=== PATIENT | female | born 1950 | race Two or more races ===

== ENCOUNTER 2019-07-28 16:32 | Inpatient (IN) | payer OTHER ==
[~2019-07-28] VITALS: Ht 162.6 cm; Wt 117.9 kg
[~2019-07-28 16:32] MED LIST: AVAPRO300 MG PO; CATAFLAN
[2019-08-03] MEDS ORDERED: ANTIFUNGAL113 GM (08:21)
[2019-08-03] MEDS ORDERED: NAPROXEN SODIU550 MG (08:22)
[2019-08-03] MEDS ORDERED: DICLOFENAC SODI50 MG PO (08:22)
[2019-08-03] MEDS ORDERED: ORASEP SPRAY30 ML (08:22)
[2019-08-05] MEDS ORDERED: XARELTO10 MG PO (08:02)
[2019-08-05] MEDS ORDERED: BACTRIM DS TAB1 EACH PO (08:02)
[2019-08-05] MEDS ORDERED: OXYC1TAB9 PO (08:02)
[2019-08-05] MEDS ORDERED: INTEGRA PLUS C1 EACH PO (08:02)
== END 2019-08-05 14:24 | DRG 470 ==
LOC: O/R 08-03 05:05 → SURH 08-03 11:59 → CIR.AMB 08-03 12:00 → SURH 08-03 13:15 → EDSTATUS 08-03 13:41 → SURH 08-03 13:42
PROVIDERS: ADMIT Orthopaedic Surgery Sports Medicine
PROC: 0SRC0J9 Replacement of Right Knee Joint with Synthetic Substitute, Cemented, Open Approach (ICD-10-PCS; principal; 2019-08-03 13:15)
DX: M17.11 Unilateral primary osteoarthritis, right knee (principal); I10 Essential (primary) hypertension

== ENCOUNTER 2021-06-02 14:27 | Inpatient (IN) | payer OTHER ==
[~2021-06-02] VITALS: Ht 162.6 cm; Wt 117.9 kg
[~2021-06-02 14:27] MED LIST changes: +ANTIFUNGAL113 GM; +BACTRIM DS TAB1 EACH PO; +DICLOFENAC SODI50 MG PO; +INTEGRA PLUS C1 EACH PO; +NAPROXEN SODIU550 MG; +ORASEP SPRAY30 ML; +OXYC1TAB9 PO; +XARELTO10 MG PO
[2021-06-23] MEDS ORDERED: ZOCOR40 MG PO (09:41)
[2021-06-26] MEDS ORDERED: DICLOFENAC POTA50 MG (07:48)
[2021-06-26] MEDS ORDERED: HYDROCHLOROTH12.5 MG (07:48)
[2021-06-26] MEDS ORDERED: ATORVASTATIN CA40 MG (07:49)
[2021-06-28] MEDS ORDERED: OXYC1TAB9 PO (06:40)
[2021-06-28] MEDS ORDERED: XARELTO10 MG PO (06:40)
[2021-06-28] MEDS ORDERED: INTEGRA PLUS C1 EACH PO (06:40)
[2021-06-28] MEDS ORDERED: BACTRIM DS TAB1 EACH PO (06:40)
== END 2021-06-30 18:57 | DRG 470 ==
LOC: SURH 06-26 06:32 → O/R 06-26 06:32 → SURH 06-26 07:00
PROVIDERS: ADMIT Orthopaedic Surgery Sports Medicine; ATTEND Orthopaedic Surgery Sports Medicine
PROC: 0SR90JZ Replacement of Right Hip Joint with Synthetic Substitute, Open Approach (ICD-10-PCS; principal; 2021-06-26 07:00)
PROC: 30233N1 Transfusion of Nonautologous Red Blood Cells into Peripheral Vein, Percutaneous Approach (ICD-10-PCS; 2021-06-28)
DX: M16.11 Unilateral primary osteoarthritis, right hip (principal); D62 Acute posthemorrhagic anemia; I10 Essential (primary) hypertension; E78.49 Other hyperlipidemia; Z20.822 Contact with and (suspected) exposure to COVID-19

== ENCOUNTER 2025-01-11 05:17 | Day surgery (SDC) | payer OTHER ==
[2025-01-06 11:56] LABS: URINE APPEARANCE Clear; URINE BILIRRUBIN Negative (NEGATIVE); URINE BLOOD Negative; URINE COLOR Yellow; URINE GLUCOSE Negative (NEGATIVE); URINE KETONE Negative (NEGATIVE); URINE LEUKOCYTE Negative; URINE NITRATE Negative; URINE PROTEIN Negative (NEGATIVE); URINE UROBILINOGEN 0.2 E.U./dl
[2025-01-06 12:00] LABS: URINE BACTERIA 964.8 uL (0.0-1933); URINE EPITHELIAL CELLS 33.3 uL (0.0-38.8); URINE RBC 3.0 uL (0.0-20.8); URINE WBC 17.2 uL (0.0-23.2)
[2025-01-06 12:03] LABS: BASO % 0.3 % (0.1-1.2); EOS # 0.15 (0.04-0.54); EOS % 1.2 % (0.7-7.0); LYMPH # 4.45 (1.18-3.74); LYMPH % 34.7 % (19.3-53.1); MEAN PLATELET VOLUME 10.60 fl (9.4-12.4); MONO # 0.88 (0.24-0.82); MONO % 6.9 % (4.7-12.5); NEUT # 7.26 (1.56-6.13); NEUT % 56.6 % (34.0-71.1); RED CELL DISTRIBUTION WIDTH 15.7 % (11.6-14.4)
[2025-01-06 12:08] LABS: URINE CAST 1.17 uL (0.0-1.40)
[2025-01-06 12:18] LABS: INR 1.04
[2025-01-06 12:23] LABS: ALT/SGPT 19.0 U/L (12-78); AST/SGOT 13.0 U/L (15-37); BILIRUBIN TOTAL 0.75 mg/dL (0.3-1.2); BUN CREA RATIO 17.0 (7.0-25.0); CREATININE SERUM 1.39 mg/dL (0.55-1.02); GFR 37.06; GLOBULINA 4.2 G/DL (2.4-3.5); GLUCOSE FASTING 111.0 mg/dL (65-100); OSMOLALITY SERUM 289.0 MOSM/KG (275-295)
[2025-01-06 12:57] VITALS: BP 114/73
[~2025-01-11] VITALS: Ht 162.6 cm; Wt 117.9 kg
[~2025-01-11 05:17] MED LIST changes: +ATORVASTATIN CA40 MG; +DICLOFENAC POTA50 MG; +HYDROCHLOROTH12.5 MG; +NIFEDIPINE20 MG; +ZOCOR40 MG PO
[2025-01-11] MEDS ORDERED: ONDANSETRON HCL 2 MG/ML VIAL IV ONE (08:30)
[2025-01-11] MEDS ORDERED: KETOROLAC TROMETHAMINE 30 MG VIAL IV ONE (08:30)
[2025-01-11] MEDS ORDERED: POVIDONE-IODINE 118 ML BOTT TOP ONE (08:45)
== END 2025-01-11 12:40 | disposition home or self-care (01) ==
LOC: CIR.AMB 05:17
PROVIDERS: ATTEND Obstetrics & Gynecology
DX: N95.0 Postmenopausal bleeding (principal); N84.1 Polyp of cervix uteri; N88.8 Other specified noninflammatory disorders of cervix uteri

== ENCOUNTER 2025-01-27 09:00 | Inpatient (IN) | payer OTHER ==
[~2025-01-27] VITALS: Ht 162.6 cm; Wt 117.9 kg
[2025-01-27 11:48] VITALS: BP 94/59
[2025-01-27] MEDS ORDERED: LIPITOR40 M1 (11:55)
[2025-01-27] MEDS ORDERED: IRBESARTAN300 MG (11:55)
[2025-01-29 14:03] LABS: RH POSITIVE
[2025-02-01] MEDS ORDERED: KETOROLAC TROMETHAMINE 60 MG VIAL IM ONE (10:00)
[2025-02-01] MEDS ORDERED: TRANEXAMIC ACID 100MG/1ML (1000MG) AMPUL IV ONE ×2 (10:15)
[2025-02-01] MEDS ORDERED: MORPHINE SULFATE 4 MG/ML VIAL IV ONE ×4 (10:15→13:50)
[2025-02-01] MEDS ORDERED: CEFOXITIN SODIUM 2,000 MG VIAL IV ONE (10:15)
[2025-02-01] MEDS ORDERED: METHYLPREDNISOLONE ACETATE 80 MG/ML VIAL IM ONE (10:15)
[2025-02-01] MEDS ORDERED: CEFAZOLIN SODIUM 1,000 MG VIAL IV SCH (12:00)
[2025-02-01] MEDS ORDERED: ONDANSETRON HCL 2 MG/ML VIAL IV PRN (12:00)
[2025-02-01] MEDS ORDERED: SODIUM CHLORIDE 0.45 % 1,000 ML IV SCH (12:00)
[2025-02-01] MEDS ORDERED: MORPHINE SULFATE 4 MG/ML VIAL IV PRN (12:00)
[2025-02-02 00:47] VITALS: BP 108/64; O2SAT 100
[2025-02-02 05:03] LABS: BASO % 0.1 % (0.1-1.2); EOS # 0.00 (0.04-0.54); EOS % 0.0 % (0.7-7.0); LYMPH # 1.29 (1.18-3.74); LYMPH % 9.0 % (19.3-53.1); MEAN PLATELET VOLUME 10.50 fl (9.4-12.4); MONO # 0.62 (0.24-0.82); MONO % 4.3 % (4.7-12.5); NEUT # 12.30 (1.56-6.13); NEUT % 86.2 % (34.0-71.1); RED CELL DISTRIBUTION WIDTH 15.2 % (11.6-14.4)
[2025-02-02] MEDS ORDERED: ACETAMINOPHEN WITH CODEINE 1 UDTAB TABLET PO PRN (08:30)
[2025-02-02] MEDS ORDERED: NIFEDIPINE 30 MG TAB.SA.OSM PO SCH (09:00)
[2025-02-02] MEDS ORDERED: SENNA/DOCUSATE SODIUM 1 TAB TABLET PO SCH (09:00)
[2025-02-02] MEDS ORDERED: IRON FUM,PS/FOLIC/BCOMP,C NO.9 1 CAP CAPSULE PO SCH (09:00)
[2025-02-02] MEDS ORDERED: IRBESARTAN 300 MG TABLET PO SCH (09:00)
[2025-02-02] MEDS ORDERED: ATORVASTATIN CALCIUM 40 MG TABLET PO SCH (09:00)
[2025-02-02] MEDS ORDERED: BACITRACIN 28.35 GM OINT.TUBE TOP SCH (09:00)
[2025-02-02] MEDS ORDERED: RIVAROXABAN 10 MG TAB PO SCH (09:00)
[2025-02-02] MEDS ORDERED: CELECOXIB 200 MG CAPSULE PO SCH (09:00)
[2025-02-02 16:11] VITALS: BP 126/64; O2SAT 98
[2025-02-02] MEDS ORDERED: SOD FERRIC GLUC COMPLX/SUCROSE 62.5 MG in 0.9 % SODIUM CHLORIDE 50 ML IV SCH (16:20)
[2025-02-02] MEDS ORDERED: SULFAMETHOXAZOLE/TRIMETHOPRIM DS 1 TAB PO SCH (21:00)
[2025-02-03 00:55] LABS: BASO % 0.2 % (0.1-1.2); EOS # 0.00 (0.04-0.54); EOS % 0.0 % (0.7-7.0); LYMPH # 2.02 (1.18-3.74); LYMPH % 10.6 % (19.3-53.1); MEAN PLATELET VOLUME 10.40 fl (9.4-12.4); MONO # 1.30 (0.24-0.82); MONO % 6.8 % (4.7-12.5); NEUT # 15.56 (1.56-6.13); NEUT % 81.6 % (34.0-71.1); RED CELL DISTRIBUTION WIDTH 14.6 % (11.6-14.4)
[2025-02-03 01:11] VITALS: BP 122/79; O2SAT 98
[2025-02-03] MEDS ORDERED: XARELTO10 MG PO (08:11)
[2025-02-03] MEDS ORDERED: INTEGRA PLUS C1 EACH PO (08:11)
[2025-02-03] MEDS ORDERED: Septra Ds Tablet PO (08:11)
[2025-02-03] MEDS ORDERED: ACETAMINOPHEN-1 EAC2 PO (08:11)
[2025-02-03 08:28] VITALS: BP 123/71; O2SAT 100
[2025-02-03 11:09] LABS: COVID-19 AG NEGATIVE (NEGATIVE)
[2025-02-03 12:03] LABS: ALT/SGPT 16.0 U/L (12-78); AST/SGOT 16.0 U/L (15-37); BILIRUBIN TOTAL 0.51 mg/dL (0.3-1.2); BUN CREA RATIO 19.0 (7.0-25.0); CREATININE SERUM 1.47 mg/dL (0.55-1.02); GFR 34.75; GLOBULINA 3.4 G/DL (2.4-3.5); GLUCOSE FASTING 94.0 mg/dL (65-100); OSMOLALITY SERUM 290.0 MOSM/KG (275-295)
== END 2025-02-03 15:08 | disposition home or self-care (01) | DRG 470 ==
LOC: O/R 02-01 07:00 → SURG 02-01 07:00
PROVIDERS: ADMIT Orthopaedic Surgery Sports Medicine; ATTEND Orthopaedic Surgery Sports Medicine
PROC: 0SRD0J9 Replacement of Left Knee Joint with Synthetic Substitute, Cemented, Open Approach (ICD-10-PCS; principal; 2025-02-01 08:30)
DX: M17.12 Unilateral primary osteoarthritis, left knee (principal)